=== PATIENT | female | born 1995 | race Caucasian/White ===

== ENCOUNTER 2016-07-14 13:39 | Emergency (ER) | payer OTHER ==
[~2016-07-14 13:39] MED LIST: CEPH-460 PO; PREN1TAB63
[2016-07-14 13:59] VITALS: BP 100/58; PULSE 87
[2016-07-14 14:00] VITALS: RESP 16; TEMP 98.3
[2016-07-14 14:01] VITALS: TEMP 98.3
--- NOTE | 2016-07-14 14:25 | PD ---
HPI Chief Complaint upper abdominal pain Date Seen: Jul 14, 2016 Travel History International Travel<30 Days: No Contact w/Intl Traveler<30Days: No Known Affected Area: No History of Present Illness HPI 21 yo @ 38w0d with MAYDA 07-28-2016. Patient with care at [facility]. Patient reports uncomplicated . She was seen yesterday for a DONALD visit and no complications noted. SVE in clinc 1cm. Last evening she noted some pain across the upper abdomen under her rib cage. The pain "came and went", lasted at the most 5 min. She had some nausea this AM, no vomiting and has a normal appetite. The pain has remained intermittent today. She does not think it is related to her eating. It radiates to her back area. She has had some GERD this . No UC, LOF, VB. +FM. History Past Medical History Medical History: Denies Significant Hx Obstetric History Obstetric History G1 Family History Family History: Negative Social History Alcohol Use: No Tobacco Use: No Substance Abuse: No Allergies-Medications (Allergen,Severity, Reaction): Coded Allergies: No Known Allergies (Unverified , 07/13/16) Home Meds Active Scripts Cephalexin (Keflex)500 Mg [id number] Mg PO Q12H #14 CAP Ref 0 Prov:Rosalie Bran CNM [facility] 07/06/16 Reported Medications Multivit-Min W/Fe-FA ( Vitamins 0.8 mg)1 Tab Tab 03/29/16 Review of Systems General / Constitutional: No: Fever, Chills Eyes: No: Blurred Vision, Visual changes HENT: No: Headaches, Lightheadedness Cardiovascular: No: Irregular Rhythm, Chest Pain or Discomfort, Palpitations Respiratory: No: Cough, Short of Breath Gastrointestinal: Nausea (this am only), Abdominal Pain (per hpi), Constipation , No: Vomiting, Diarrhea, Changes in Bowel Habits, Loss of Appetite Genitourinary: No: Urgency, Frequency, Dysuria, Discharge, Vaginal Bleeding Musculoskeletal: No: Limited ROM, Weakness, Cramping Skin: No Rash, No Itching Neurologic: No: Focal Abnormalities, Coordination Problem Physical Exam Narrative GENERAL: Well-nourished, well-developed patient. SKIN: Warm and dry. HEAD: Normocephalic and atraumatic. EYES: No scleral icterus. No injection or drainage. ENT: No nasal drainage noted. Mucous membranes pink. Airway patent. NECK: trachea midline. No JVD. CARDIOVASCULAR: Regular rate RESPIRATORY: . No accessory muscle use. ABDOMEN/GI: Abdomen soft, non-tender, no rebound, no guarding. Pain is not reproduced on exam. Gravid, NT TOCO: only occasional UC FHT's: Category: I Baseline: 135 Reactive: +accelerations Variability: mod Decels: [-] EXTREMITIES: No cyanosis or edema. BACK: Nontender without obvious deformity. No CVA tenderness. NEUROLOGICAL: Awake and alert. Motor and sensory grossly within normal limits. Normal speech. Data Data Vital Signs Reviewed: Yes Orders Vital Signs (Adult) .ON ADMISSION (07/14/16 13:51) ^ Labor Status (07/14/16 13:51) ^ Non Stress Test (07/14/16 13:51) Urinalysis - C+S If Indicated (07/14/16 14:18) ^ Hydration (07/14/16 14:18) Cbc No Diff, Includes Plts (07/14/16 14:18) Comprehensive Metabolic Panel (07/14/16 14:18) Citric Acid-Sodium Citrate Liq (Bicitra (07/14/16 14:30) Labs Laboratory Tests Test 07/14/16 14:20 White Blood Count 8.2 TH/MM3 (4.0-11.0) Red Blood Count 3.94 MIL/MM3 (4.00-5.30) Hemoglobin 12.1 GM/DL (11.6-15.3) Hematocrit 34.6 % (35.0-46.0) Mean Corpuscular Volume 88.0 FL (80.0-100.0) Mean Corpuscular Hemoglobin 30.7 PG (27.0-34.0) Mean Corpuscular Hemoglobin 34.9 % Concent (32.0-36.0) Red Cell Distribution Width 13.1 % (11.6-17.2) Platelet Count 198 TH/MM3 (150-450) Mean Platelet Volume 8.0 FL (7.0-11.0) Urine Color YELLOW (YELLW/STRAW) Urine Turbidity HAZY (CLEAR) Urine pH 7.0 (5.0-8.5) Urine Specific Glenn 1.023 (1.002-1.035) Urine Protein TRACE mg/dL (NEG-TRACE) Urine Glucose (UA) NEG mg/dL (NEG) Urine Ketones NEG mg/dL (NEG) Urine Occult Blood NEG (NEG) Urine Nitrite NEG (NEG) Urine Bilirubin NEG (NEG) Urine Urobilinogen 2.0 MG/DL (LESS THAN 2.0) Urine Leukocyte Esterase SMALL (NEG) Urine WBC 1 /hpf (0-5) Urine Squamous Epithelial 4 /hpf (0-5) Cells Urine Transitional Epithelial <1 /hpf (NONE) Cells Urine Mucus FEW /lpf (OCC) Microscopic Urinalysis Comment CULT NOT INDICATED Sodium Level 138 MEQ/L (136-145) Potassium Level 3.9 MEQ/L (3.5-5.1) Chloride Level 106 MEQ/L (98-107) Carbon Dioxide Level 22.5 MEQ/L (21.0-32.0) Anion Gap 10 MEQ/L (5-15) Blood Urea Nitrogen 7 MG/DL (7-18) Creatinine 0.41 MG/DL (0.50-1.00) Estimat Glomerular Filtration 198 ML/MIN Rate (>89) Random Glucose 69 MG/DL (74-106) Calcium Level 8.6 MG/DL (8.5-10.1) Total Bilirubin 0.3 MG/DL (0.2-1.0) Aspartate Amino Transf 20 U/L (16-38) (AST/SGOT) Alanine Aminotransferase 27 U/L (9-42) (ALT/SGPT) Alkaline Phosphatase 142 U/L (45-117) Total Protein 6.6 GM/DL (6.4-8.2) Albumin 2.8 GM/DL (3.4-5.0) Vital Signs Date Time Temp Pulse Resp B/P Pulse Ox O2 Delivery O2 Flow Rate FiO2 07/14/16 14:01 98.3 07/14/16 14:00 16 07/14/16 13:59 87 100/58 MDM Narrative Course / MDM 38 weeks Abdominal pain. Occasional contraction noted when patient states she has "pain" Bicitra given for hx of GERD CAT I FHT CBC wnl CMP wnl UA negative Plan No labor at this time. Labor precautions reviewed Has f/u DONALD at [facility] Diagnosis Diagnosis: Primary Impression: Abdominal pain during in third trimester Additional Impression: 38 weeks gestation of Disposition: DISCHARGE HOME Condition: Good Wiedel,Karla MD Jul 14, 2016 14:25
[2016-07-14] MEDS ORDERED: CITRIC ACID-SODIUM CITRATE LIQ 30 ML UDC PO ONE (14:30)
[2016-07-14 14:50] LABS: HEMATOCRIT 34.6 % (35.0-46.0); MEAN CORPUSCULAR HEMOGLOBIN 30.7 PG (27.0-34.0); MEAN CORPUSCULAR HGB CONC 34.9 % (32.0-36.0); PLATELET COUNT 198 TH/MM3 (150-450); RED BLOOD COUNT 3.94 MIL/MM3 (4.00-5.30); RED CELL DISTRIBUTION WIDTH 13.1 % (11.6-17.2); REVIEW FLAG FINAL; WHITE BLOOD COUNT 8.2 TH/MM3 (4.0-11.0)
[2016-07-14 14:51] LABS: BLOOD, URINE NEG (NEG); COMMENT (UR) CULT NOT INDICATED; CULTURE IF INDICATED CULT NOT INDICATED; GLUCOSE,URINE NEG (NEG); KETONE, URINE NEG (NEG); MUCUS URINE FEW /lpf (OCC); NITRITE,URINE NEG (NEG); SQUAMOUS EPITHELIAL CELL URINE 4 /hpf (0-5); TRANSITIONAL EPI CELLS, URINE <1 /hpf; URINE COLOR YELLOW (YELLW/STRAW)
[2016-07-14 15:25] LABS: ALT (GPT) 27 U/L (9-42); ANION GAP 10 MEQ/L (5-15); AST (GOT) 20 U/L (16-38); BICARBONATE 22.5 MEQ/L (21.0-32.0); BLOOD UREA NITROGEN 7 MG/DL (7-18); CHLORIDE 106 MEQ/L (98-107); GLOMERULAR FILTRATION RATE 198 ML/MIN (>89); POTASSIUM 3.9 MEQ/L (3.5-5.1); SODIUM (NA) 138 MEQ/L (136-145)
[2016-07-14 15:28] LABS: ALKALINE PHOSPHATASE 142 U/L (45-117); TOTAL BILIRUBIN ADULT 0.3 MG/DL (0.2-1.0)
[2016-09-28] MEDS ORDERED: PARAIUD (16:18)
== END 2016-07-14 15:46 | disposition home or self-care (01) ==
LOC: HOBED 13:39
DX: R10.10 Upper abdominal pain, unspecified (principal); O26.93 Pregnancy related conditions, unspecified, third trimester; K21.9 Gastro-esophageal reflux disease without esophagitis; Z3A.38 38 weeks gestation of pregnancy
CPT/HCPCS: 36415; 59025; 80053; 81001; 85027

== ENCOUNTER 2016-07-24 00:06 | Emergency (ER) | payer OTHER ==
[~2016-07-24 00:06] MED LIST changes: -CEPH-460 PO
--- NOTE | 2016-07-24 01:10 | PD ---
HPI Chief Complaint Abdominal pain and back pain for the past 5 hours Date Seen: Jul 24, 2016 Time Seen: 01:04 Travel History International Travel<30 Days: No Contact w/Intl Traveler<30Days: No Known Affected Area: No History of Present Illness HPI Patient is a 21-year-old white female who is at 39 weeks and 3 days comes in tonight for abdominal and back pain for the past several hours. In taking care of by care for [facility] for women without any complications. She has good movement and denies vaginal bleeding or discharge. Cervix was 1 cm 1 week ago. Para: 0 : 1 Last Menstrual Period: Jul 24, 2016 (MAYDA July 28, 2016) History Past Medical History Medical History: Denies Significant Hx Past Surgical History Surgical History: No Previous Surgery Family History Family History: Negative Social History Alcohol Use: No Tobacco Use: No Substance Abuse: No Allergies-Medications (Allergen,Severity, Reaction): Coded Allergies: No Known Allergies (Unverified , 07/20/16) Home Meds Reported Medications Multivit-Min W/Fe-FA ( Vitamins 0.8 mg)1 Tab Tab 03/29/16 Discontinued Scripts Cephalexin (Keflex)500 Mg [id number] Mg PO Q12H #14 CAP Ref 0 Prov:Rosalie Bran CNM [employer] 07/06/16 Review of Systems Except as stated in HPI: all other systems reviewed are Neg Physical Exam Narrative GENERAL: Well-nourished, well-developed patient. SKIN: Warm and dry. HEAD: Normocephalic and atraumatic. EYES: No scleral icterus. No injection or drainage. ENT: No nasal drainage noted. Mucous membranes pink. Airway patent. NECK: Supple, trachea midline. No JVD. CARDIOVASCULAR: Regular rate and rhythm without murmurs, gallops, or rubs. RESPIRATORY: Breath sounds equal bilaterally. No accessory muscle use. BREASTS: Bilateral exam showed no masses , no retractions, no nipple discharge. ABDOMEN/GI: Abdomen soft, non-tender, bowel sounds present, no rebound, no guarding Gravid to [38-] weeks size Fundal Height: [-] GENITOURINARY: External Genitalia: intact and normal in appearance BUS glands: [Normal-] Cervix: Very posterior Dilatation: 1 Effacement: 50 Station: -3 Presentation: Vertex Membranes: Intact Uterine Contractions: Irregular every 5-15 minutes FHT's: Category: [1-] Baseline: 140 Reactive: Reactive with accelerations Variability: Moderate Decels: Absent EXTREMITIES: No cyanosis or edema. BACK: Nontender without obvious deformity. No CVA tenderness. NEUROLOGICAL: Awake and alert. Motor and sensory grossly within normal limits. Five out of 5 muscle strength in all muscle groups. Normal speech. Data Data Vital Signs Reviewed: Yes MDM Plan Patient is a 21-year-old who was at 39 weeks and 3 days here with false labor Cervix is unchanged from her exam 1 week ago Labor precautions were given she will be discharged with follow-up to her OB provider. Return back to labor and delivery for worsening pain vaginal bleeding and vaginal discharge or rupture of membranes Diagnosis Diagnosis: Primary Impression: 39 weeks gestation of Additional Impression: False labor after 37 weeks of gestation without delivery Disposition: 01 DISCHARGE HOME Lynda Li MD Jul 24, 2016 01:09
[2016-09-28] MEDS ORDERED: PARAIUD (16:18)
== END 2016-07-24 01:33 | disposition home or self-care (01) ==
LOC: HOBED 00:06
DX: O47.1 False labor at or after 37 completed weeks of gestation (principal); Z3A.39 39 weeks gestation of pregnancy
CPT/HCPCS: 99283

== ENCOUNTER 2016-07-26 18:20 | Emergency (ER) | payer OTHER ==
--- NOTE | 2016-07-26 18:53 | PD ---
HPI Chief Complaint Lower abdominal pain Travel History International Travel<30 Days: No Contact w/Intl Traveler<30Days: No Known Affected Area: No History of Present Illness HPI G1 at 39w 5d presenting with c/o lower abdominal pain. Patient seen here 2 days ago with similar complaints. Cervical exam 1cm then. Patient also reports being evaluated at another facility today, discharged, but wanting to be examined again. Reporting occasional feeling of heart racing. Denies SOB. Para: 0 : 1 History Past Medical History Medical History: Denies Significant Hx Past Surgical History Surgical History: No Previous Surgery Family History Family History: Negative Social History Alcohol Use: No Tobacco Use: No Substance Abuse: No Allergies-Medications (Allergen,Severity, Reaction): Coded Allergies: No Known Allergies (Unverified , 07/20/16) Home Meds Reported Medications Multivit-Min W/Fe-FA ( Vitamins 0.8 mg)1 Tab Tab 03/29/16 Discontinued Scripts Cephalexin (Keflex)500 Mg [id number] Mg PO Q12H #14 CAP Ref 0 Prov:Rosalie Bran CNM [employer] 07/06/16 Physical Exam AFVSS BP 115/64 Pulse ox 99% on room air Narrative GENERAL: Well-nourished, well-developed patient. SKIN: Warm and dry. HEAD: Normocephalic and atraumatic. EYES: No scleral icterus. No injection or drainage. ENT: No nasal drainage noted. Mucous membranes pink. Airway patent. NECK: Supple, trachea midline. No JVD. CARDIOVASCULAR: Regular rate and rhythm without murmurs, gallops, or rubs. RESPIRATORY: Breath sounds equal bilaterally. No accessory muscle use. BREASTS: Bilateral exam showed no masses , no retractions, no nipple discharge. ABDOMEN/GI: Abdomen soft, non-tender, bowel sounds present, no rebound, no guarding Gravid to [-] weeks size Fundal Height: [-] GENITOURINARY: External Genitalia: intact and normal in appearance BUS glands: [-] Cervix: [-] Dilatation: [1] Effacement: [50] Station: [3] Presentation: [-] Membranes: [intact or ruptured] Uterine Contractions: [irregular] FHT's: Category: [1] Baseline: [130s] Reactive: [reactive] Variability: [moderate] Decels: [none] EXTREMITIES: No cyanosis or edema. BACK: Nontender without obvious deformity. No CVA tenderness. NEUROLOGICAL: Awake and alert. Motor and sensory grossly within normal limits. Five out of 5 muscle strength in all muscle groups. Normal speech. Data Data Vital Signs Reviewed: Yes Labs UA- negative with small LE MDM Interpretation(s) IUP at 39w 5d Plan Will monitor. Will recheck cervix and d/c home if no cervical change. Patient to keep appt scheduled for tomorrow. Diagnosis Diagnosis: Primary Impression: 39 weeks gestation of Additional Impressions: False labor after 37 weeks of gestation without delivery Abdominal pain during in third trimester Disposition: DISCHARGE HOME Condition: Good Eunice Noonan MD Jul 26, 2016 18:53
[2016-07-26 20:07] LABS: BACTERIA, URINE OCC /hpf; BLOOD, URINE NEG (NEG); COMMENT (UR) CULT NOT INDICATED; CULTURE IF INDICATED CULT NOT INDICATED; GLUCOSE,URINE NEG (NEG); KETONE, URINE NEG (NEG); MUCUS URINE FEW /lpf (OCC); NITRITE,URINE NEG (NEG); PH, URINE 6.5 (5.0-8.5); SQUAMOUS EPITHELIAL CELL URINE 3 /hpf (0-5); URINE COLOR YELLOW (YELLW/STRAW)
[2016-09-28] MEDS ORDERED: PARAIUD (16:18)
== END 2016-07-26 21:57 | disposition home or self-care (01) ==
LOC: HOBED 18:20
DX: O47.1 False labor at or after 37 completed weeks of gestation (principal); R10.9 Unspecified abdominal pain; Z3A.39 39 weeks gestation of pregnancy
CPT/HCPCS: 59025; 81001

== ENCOUNTER 2016-08-02 15:39 | Inpatient (IN) | payer OTHER ==
[~2016-08-02] VITALS: Ht 170.2 cm; Wt 95.3 kg
--- NOTE | 2016-08-02 16:05 | PD ---
HPI Chief Complaint Induction of labor Date Seen: Aug 02, 2016 Time Seen: 16:10 Travel History International Travel<30 Days: No Contact w/Intl Traveler<30Days: No History of Present Illness HPI 21 year old at 40/5 weeks gestation presents for scheduled induction of labor. She has no leakage of fluid or contractions. Has good movement. No headache, blurry vision, abdominal pain, chest pain, shortness of breath, or calf tenderness. Reports no complications during this . Review of records shows rubella non-immune status, GBS negative but done over 5 weeks ago , and late care, otherwise labs normal and no other complications. History Past Medical History Narrative Medical None Obstetric History Obstetric History MAYDA 07/28/16 - by Approximate LMP of 10/22/15 Confirmed by Ultrasound 03/18/16 Problems/Plan RUBELLA NON IMMUNE Late intake -GBS Expected Delivery Route/Plan vaginal Visit Flowsheet Prepregnancy Weight: 175 #: 3 Date EGA BP Wt Alb Glu FuHt Pres FHR F/m CTX Edema Dil Eff Sta Prov 03/10/16 20w0d 109/66 185 n n 03/29/16 22w5d 106/78 188 n n 23 Unstable 143 Active Absent Absent lb 04/28/16 27w0d 122/71 193 n n 27 Unstable 144 Active Absent Absent lb 05/14/16 29w2d 116/82 197 n n 29 135 Decr Absent Absent sc 05/28/16 31w2d 100/61 199 N N 31 144 Active Absent Absent sc 06/10/16 33w1d 118/70 202 n n 33 138 Active Absent Absent sc 06/24/16 35w1d 106/74 204 n n 35 Ceph 150 Active BH Absent sc Cumulative Gain: 29 2 Date EGA Comment 06/24/16 35w1d baby active, reports occ cramping. GBS and cx obtained, labor discussed 06/24/16 35w1d SONO. Good growth, EFW 6 lb 6 oz, 80 %tile, SIGRID wnl. 13.8 cm. Incidental BPP /8, Anatomy appears wnl although limiting by late GA and lie. 06/10/16 33w1d baby active, no c/o. labor discussed 05/28/16 31w2d baby active, labor discussed as well as hospital choice. 05/14/16 29w2d Pt reports decreased movement. Sts she has not felt much movement in 1-2 days. EFM applied for NST. Audible and palpable movement although NST is flat w/o accels. Discussed findings w pt and sent to L &D for extended NST. 04/28/16 27w0d SONO. Good growth, EFW 2 lb 2 oz, EFW 46.9 %tile, anatomy appears wnl, heart and face visualized today and also appears wnl. 04/28/16 27w0d states heartburm better now on meds but still gets. Has sono to follow to get additional views of heart/face. Given 28 week labslip 03/29/16 22w5d C/o RUQ pain -- pt thought it was gas-- describes as sharp radiating to her back, worse upon inhalation, feels like burping would make it better. Happens only at night when lying down. 03/18/16 21w1d SONO. Biometries consistent with LMP, EFW 14 oz, 45%tile. Anatomy appears wnl although some views limited due to lie (heart and face ). FU 4-6 wk for repeat anatomy. Standard Items 3 Result Result Date Next Due Freq/Seq Obstetric Labs 32-36 WKS Group B Streptococcus Screen Manual Instance 06/26/16 (35w3d) Complete 35w0d History 2 : 1 AB Spontaneous: 0 Term: 0 Mult Births: 0 : 0 Ectopic: 0 AB Induced: 0 Living Children: 0 OTHER- Care-Labs/US Initial lab date: Mar 10, 2016 Blood type: O D (Rh) Type: Positive Antibody screen: negative Hematocrit (%): 35.3 Hemoglobin (dL): 12.5 Rubella: Not immune VDRL: negative Urine screen: Normal HBsAg: negative HIV: negative TSH: 2.50 Varicella: Positive MSAFP/multiple markers: negative (HARMONY NEG, HAVING A GIRL) Visit date: May 06, 2016 Hematocrit (%): 36.6 Hemoglobin (dL): 12.1 Diabetes screen - 1-hr GGT: 113 HIV: Negative Hepatitis B: Negative VDRL: negative Chlamydia (32 - 36 week labs): negative Gonorrhea (32 - 36 week labs): negative GBS: negative on June 24, needs repeat Past Surgical History Narrative Surgical None Family History Narrative Family History None significant Social History Alcohol Use: No Tobacco Use: No Substance Abuse: No Allergies-Medications (Allergen,Severity, Reaction): Coded Allergies: No Known Allergies (Unverified , 08/02/16) Home Meds Reported Medications Multivit-Min W/Fe-FA ( Vitamins 0.8 mg)1 Tab Tab 03/29/16 Review of Systems Except as stated in HPI: all other systems reviewed are Neg Physical Exam Narrative GENERAL: Resting SKIN: Warm and dry. HEAD: Normocephalic and atraumatic. EYES: No scleral icterus. No injection or drainage. ENT: No nasal drainage noted. Mucous membranes pink. Airway patent. NECK: Supple, trachea midline. No JVD. CARDIOVASCULAR: Regular rate and rhythm without murmurs, gallops, or rubs. RESPIRATORY: Breath sounds equal bilaterally. No accessory muscle use. ABDOMEN/GI: Abdomen soft, non-tender, bowel sounds present, no rebound, no guarding Gravid to 41 weeks size GENITOURINARY: External Genitalia: intact and normal in appearance Dilatation: 1-2 Effacement: 50 Station: -3 Presentation: vertex Membranes: intact Uterine Contractions: none FHT's: Category: 1 Baseline: 130's Reactive: yes Variability: moderate Decels: none EXTREMITIES: No cyanosis or edema. BACK: Nontender without obvious deformity. No CVA tenderness. NEUROLOGICAL: Awake and alert. Data Data Vital Signs Reviewed: Yes [facility] Medical Record Reviewed: Yes Interpretation(s) 21 year old at 40/5 weeks gestation her for scheduled induction of labor. - Admit to labor and delivery. - heart rate monitoring. - Cervidil for cervical ripening. - Expectant management. - Plan for vaginal delivery. Discussed with Dr. Dank Linda,Mahesh Steiner MD R2 Aug 02, 2016 16:05
[2016-08-02] MEDS ORDERED: LACTATED RINGER'S 1000 ML INJ 1,000 ML IV PRN (16:08)
[2016-08-02] MEDS ORDERED: LIDOCAINE HCL 1% 50 ML VIAL I-DERMAL PRN (16:15)
[2016-08-02] MEDS ORDERED: MINERAL OIL 10 ML VIAL TOPICAL PRN (16:15)
[2016-08-02] MEDS ORDERED: OXYTOCIN 30 UNITS-500ML PREMIX 500 ML IV ONE (16:15)
[2016-08-02] MEDS ORDERED: ONDANSETRON HCL 4 MG/2 ML VIAL IV PRN (16:15)
[2016-08-02] MEDS ORDERED: LIDOCAINE HCL 1% 50 ML VIAL INFIL PRN (16:15)
[2016-08-02] MEDS ORDERED: CITRIC ACID-SODIUM CITRATE LIQ 30 ML UDC PO SCH (16:15)
[2016-08-02] MEDS ORDERED: SODIUM CHLORID 0.9% 500 ML INJ 500 ML IV PRN (16:15)
[2016-08-02] MEDS ORDERED: SODIUM CHLOR 0.9% 1000 ML INJ 1,000 ML IV PRN (16:28)
--- NOTE | 2016-08-02 16:30 | HHI.HP ---
History & Physical H&P HPI Chief Complaint Induction of labor Date Seen: Aug 02, 2016 Time Seen: 16:10 Travel History International Travel<30 Days: No Contact w/Intl Traveler<30Days: No History of Present Illness HPI 21 year old at 40/5 weeks gestation presents for scheduled induction of labor. She has no leakage of fluid or contractions. Has good movement. No headache, blurry vision, abdominal pain, chest pain, shortness of breath, or calf tenderness. Reports no complications during this . Review of records shows rubella non-immune status, GBS negative but done over 5 weeks ago , and late care, otherwise labs normal and no other complications. History (Limited) History Past Medical History Narrative Medical None Obstetric History Obstetric History MAYDA 07/28/16 - by Approximate LMP of 10/22/15 Confirmed by Ultrasound 03/18/16 Problems/Plan RUBELLA NON IMMUNE Late intake -GBS Expected Delivery Route/Plan vaginal Visit Flowsheet Prepregnancy Weight: 175 #: 3 Date EGA BP Wt Alb Glu FuHt Pres FHR F/m CTX Edema Dil Eff Sta Prov 03/10/16 20w0d 109/66 185 n n 03/29/16 22w5d 106/78 188 n n 23 Unstable 143 Active Absent Absent lb 04/28/16 27w0d 122/71 193 n n 27 Unstable 144 Active Absent Absent lb 05/14/16 29w2d 116/82 197 n n 29 135 Decr Absent Absent sc 05/28/16 31w2d 100/61 199 N N 31 144 Active Absent Absent sc 06/10/16 33w1d 118/70 202 n n 33 138 Active Absent Absent sc 06/24/16 35w1d 106/74 204 n n 35 Ceph 150 Active BH Absent sc Cumulative Gain: 29 2 Date EGA Comment 06/24/16 35w1d baby active, reports occ cramping. GBS and cx obtained, labor discussed 06/24/16 35w1d SONO. Good growth, EFW 6 lb 6 oz, 80 %tile, SIGRID wnl. 13.8 cm. Incidental BPP 8/8, Anatomy appears wnl although limiting by late GA and lie. 06/10/16 33w1d baby active, no c/o. labor discussed 05/28/16 31w2d baby active, labor discussed as well as hospital choice. 05/14/16 29w2d Pt reports decreased movement. Sts she has not felt much movement in 1-2 days. EFM applied for NST. Audible and palpable movement although NST is flat w/o accels. Discussed findings w pt and sent to L &D for extended NST. 04/28/16 27w0d SONO. Good growth, EFW 2 lb 2 oz, EFW 46.9 %tile, anatomy appears wnl, heart and face visualized today and also appears wnl. 04/28/16 27w0d states heartburm better now on meds but still gets. Has sono to follow to get additional views of heart/face. Given 28 week labslip 03/29/16 22w5d C/o RUQ pain -- pt thought it was gas-- describes as sharp radiating to her back, worse upon inhalation, feels like burping would make it better. Happens only at night when lying down. 03/18/16 21w1d SONO. Biometries consistent with LMP, EFW 14 oz, 45%tile. Anatomy appears wnl although some views limited due to lie (heart and face ). FU 4-6 wk for repeat anatomy. Standard Items 3 Result Result Date Next Due Freq/Seq Obstetric Labs 32-36 WKS Group B Streptococcus Screen Manual Instance 06/26/16 (35w3d) Complete 35w0d History 2 : 1 AB Spontaneous: 0 Term: 0 Mult Births: 0 : 0 Ectopic: 0 AB Induced: 0 Living Children: 0 OTHER- Care-Labs/US Initial lab date: Mar 10, 2016 Blood type: O D (Rh) Type: Positive Antibody screen: negative Hematocrit (%): 35.3 Hemoglobin (dL): 12.5 Rubella: Not immune VDRL: negative Urine screen: Normal HBsAg: negative HIV: negative TSH: 2.50 Varicella: Positive MSAFP/multiple markers: negative (HARMONY NEG, HAVING A GIRL) Visit date: May 06, 2016 Hematocrit (%): 36.6 Hemoglobin (dL): 12.1 Diabetes screen - 1-hr GGT: 113 HIV: Negative Hepatitis B: Negative VDRL: negative Chlamydia (32 - 36 week labs): negative Gonorrhea (32 - 36 week labs): negative GBS: negative on June 24, needs repeat Past Surgical History Narrative Surgical None Family History Narrative Family History None significant Social History Alcohol Use: No Tobacco Use: No Substance Abuse: No Allergies-Medications Allergies-Medications (Allergen,Severity, Reaction): Coded Allergies: No Known Allergies (Unverified , 08/02/16) Home Meds Reported Medications Multivit-Min W/Fe-FA ( Vitamins 0.8 mg)1 Tab Tab 03/29/16 ROS Review of Systems Except as stated in HPI: all other systems reviewed are Neg Physical Exam Physical Exam Narrative GENERAL: Resting SKIN: Warm and dry. HEAD: Normocephalic and atraumatic. EYES: No scleral icterus. No injection or drainage. ENT: No nasal drainage noted. Mucous membranes pink. Airway patent. NECK: Supple, trachea midline. No JVD. CARDIOVASCULAR: Regular rate and rhythm without murmurs, gallops, or rubs. RESPIRATORY: Breath sounds equal bilaterally. No accessory muscle use. ABDOMEN/GI: Abdomen soft, non-tender, bowel sounds present, no rebound, no guarding Gravid to 41 weeks size GENITOURINARY: External Genitalia: intact and normal in appearance Dilatation: 1-2 Effacement: 50 Station: -3 Presentation: vertex Membranes: intact Uterine Contractions: none FHT's: Category: 1 Baseline: 130's Reactive: yes Variability: moderate Decels: none EXTREMITIES: No cyanosis or edema. BACK: Nontender without obvious deformity. No CVA tenderness. NEUROLOGICAL: Awake and alert. Data Data Data Vital Signs Reviewed: Yes MDM MDM Medical Record Reviewed: Yes Interpretation(s) 21 year old at 40/5 weeks gestation her for scheduled induction of labor. - Admit to labor and delivery. - heart rate monitoring. - Cervidil for cervical ripening. - Expectant management. - Plan for vaginal delivery. Discussed with Dr. Weems (Mahesh Linda MD R2) H&P The exam, history, and the medical decision-making described in the above note were completed with the assistance of the resident provider. I reviewed and agree with the findings presented. I attest that I had a [id number] encounter with the patient on the same day, and personally performed and documented my assessment and findings in the medical record. (Jonathan Weems MD) Mahesh Linda MD R2 Aug 02, 2016 16:30 Jonathan Weems MD Aug 02, 2016 17:16
[2016-08-02 16:58] LABS: BACTERIA, URINE RARE /hpf; BLOOD, URINE SMALL (NEG); COMMENT (UR) CULT NOT INDICATED; CULTURE IF INDICATED CULT NOT INDICATED; GLUCOSE,URINE NEG (NEG); KETONE, URINE NEG (NEG); NITRITE,URINE NEG (NEG); SQUAMOUS EPITHELIAL CELL URINE 6 /hpf (0-5); URINE COLOR YELLOW (YELLW/STRAW)
[2016-08-02] MEDS ORDERED: DINOPROSTONE 10 MG VAG INSERT VAGINAL ONE (17:00)
[2016-08-02] MEDS: LACTATED RINGER'S 1000 ML INJ 1,000 ML IV SCH (17:13)
[2016-08-02 17:30] LABS: AUTOMATED NEUTROPHIL # 5.7 TH/MM3 (1.8-7.7); BASOPHIL % 0.5 % (0.0-2.0); EOSINOPHIL % 0.5 % (0.0-4.0); HEMO FLAGS DIFF FINAL; LYMPH % 29.5 % (9.0-44.0); LYMPHOCYTE # 2.6 TH/MM3 (1.0-4.8); MEAN CORPUSCULAR HEMOGLOBIN 31.1 PG (27.0-34.0); MEAN CORPUSCULAR HGB CONC 35.3 % (32.0-36.0); MONO % 4.5 % (0.0-8.0); PLATELET COUNT 224 TH/MM3 (150-450); RED BLOOD COUNT 4.09 MIL/MM3 (4.00-5.30); RED CELL DISTRIBUTION WIDTH 13.2 % (11.6-17.2); WHITE BLOOD COUNT 8.8 TH/MM3 (4.0-11.0)
[2016-08-03] VITALS (18 sets, daily range): BP systolic 95–131; BP diastolic 51–91; PULSE 82–107; RESP 18–20; TEMP 98.4–100; O2SAT 100
[2016-08-03] MEDS: LACTATED RINGER'S 1000 ML INJ 1,000 ML IV SCH (00:06)
[2016-08-03] MEDS ORDERED: fentaNYL 2MCG-BUPIV 0.125% INJ 100 ML ONE (01:09)
[2016-08-03] MEDS ORDERED: NO SYSTEM NARCOTICS XX PRN (01:30)
[2016-08-03] MEDS ORDERED: DO NOT ADMINISTER ANTICOAGULANTS XX PRN (01:30)
[2016-08-03] MEDS ORDERED: fentaNYL 2MCG-BUPIV 0.125% 100 ML EPIDURAL SCH (01:30)
[2016-08-03] MEDS ORDERED: ePHEDrine/NS 25 MG/5 ML SYR IV PRN (02:15)
--- NOTE | 2016-08-03 03:00 | PD.LABORPN ---
Subjective Subjective Patient is resting comfortably with epidural in place. Objective Objective Pelvic Exam: Cervix: posterior Dilatation: 3 Effacement: 80 Station: - 3 Presentation: vertex Membranes: intact Uterine Contractions: q1-4min FHT's: Category: I Baseline: 120 Reactive: + Variability: moderate Decels: none Assessment/Plan Assessment and Plan 21 year old at 40-6/7 weeks gestation. 1. IUP- Category I tracing, continue routine obstetric care. 2. IOL- s/p Cervidil and cervical change to 3cm. Adequate contraction pattern at this time. Will augment with Pitocin if needed. 3. GBS negative 4. Anticipate vaginal delivery sdw Dr. Sanz R1 dw Pau Weinstein MD R2 Aug 03, 2016 03:00
[2016-08-03] MEDS ORDERED: OXYTOCIN 30 UNITS-500ML PREMIX 500 ML IV SCH (07:00)
[2016-08-03] MEDS ORDERED: ACETAMINOPHEN 325 MG TAB PO PRN ×2 (08:15→15:15)
--- NOTE | 2016-08-03 08:23 | PD.LABORPN ---
Subjective Subjective Patient with no complaints, epidural placed approximately 2am. Cervidil removed approx 5am with cervical change at that time. She is approx 8cm/90%/-2 with bulging membranes. Amniotomy was attempted and unsuccessful due to thick amniotic sac. FHT notable for tachycardia to 170, + accels, no decels, cat 2. to Maternal axillary temp is 98.1F, patient denies any symptoms. Patient was repositioned to L lateral position with new baseline HR 160. CTX are irregular. Plan: start Pitocin at 07/01/29 at this time, monitor FHT and contractions. Tylenol as needed; no fever now but will consider maternal infx if fever arises or she has symptom Routine intrapartum care GBS negative Objective Vital Signs Maternal temp 98.1F R16 P92, 112/81 Objective as above Assessment/Plan Assessment and Plan 21 year old at 40-6/7 weeks gestation. 1. IUP- Category II tracing due to tachycardia, now 160 (Cat 1), will monitor. 2. Continue routine obstetric care. 3. IOL- s/p Cervidil and cervical change now to 8cm/90%/-2. Irregular contraction pattern at this time. Start Pitocin 2/2/3-, monitor for tachysystole , intolerance, 3. GBS negative 4. Anticipate vaginal delivery Abbi Schumacher MD R1 Aug 03, 2016 08:23
--- NOTE | 2016-08-03 12:08 | PD.LABORPN ---
Subjective Subjective no c/o. comfortable with epidural Objective Vital Signs Vital Signs Date Time Temp Pulse Resp B/P Pulse Ox O2 Delivery O2 Flow Rate FiO2 08/03/16 11:45 20 08/03/16 11:30 87 111/51 08/03/16 11:00 82 124/76 08/03/16 10:30 83 128/84 08/03/16 10:00 89 125/83 Objective Pelvic Exam: Cervix: 6/80/-1, bloody show present, AROM (clear?), IUPC placed Uterine Contractions: q2 FHT's: Category: [1] Baseline: 140 Reactive: yes Variability: mod Decels: early decels noted after IUPC Placed Assessment/Plan Assessment and Plan IUP at 40w6d continue IOL GBS neg Jonathan Weems MD Aug 03, 2016 12:08
--- NOTE | 2016-08-03 15:04 | PD.LABORPN ---
Subjective Subjective OB attending note This patient is a 41 week delivered vaginally over a first-degree perineal laceration without complication. Suction on the perineum . Delivery was uncomplicated cord blood obtained placenta delivered intact spontaneously baby's weight 4010 g 8 and 9 female, mild periurethral laceration and the small perineal laceration repaired in interrupted sutures, blood loss 100 cc her no complications delivery on the family medicine residents and once again there was no problem Objective Vital Signs Vital Signs Date Time Temp Pulse Resp B/P Pulse Ox O2 Delivery O2 Flow Rate FiO2 08/03/16 14:30 99 126/70 08/03/16 14:00 107 105/70 08/03/16 13:37 99.3 18 08/03/16 13:31 84 95/52 08/03/16 13:00 93 113/67 08/03/16 12:59 20 08/03/16 12:30 88 123/77 08/03/16 12:00 85 131/91 08/03/16 11:45 20 08/03/16 11:30 87 111/51 08/03/16 11:00 82 124/76 08/03/16 10:30 83 128/84 08/03/16 10:00 89 125/83 Objective Ramos Grant II, MD Aug 03, 2016 15:04
--- NOTE | 2016-08-03 15:05 | PD.OB.DELI ---
Delivery Date: Aug 03, 2016 Anesthesia: Epidural Episiotomy: None Vaginal Delivery: Normal Presentation: Occiput anterior Nuchal Cord: None Delayed cord clamping (45 sec): Yes Infant: Female One Minute : 8 Five Minute : 9 Weight: 8 lbs 13 oz Infant Care: Suctioned, Responded to stimulation Placenta: Spontaneous delivery, Intact, 3 vessel cord Laceration: 1 deg Repair: Chromic interrupted Additional Information two 1st degree lacerations, one at 6 o'clock position and the other at 12 o' clock position, repaired with 3-0 chromic with interrupted sutures. Mahesh Linda MD R2 Aug 03, 2016 15:05
[2016-08-03] MEDS ORDERED: ALUMINUM/MAGNESIUM/SIMETH 30 ML CUP PO PRN (15:15)
[2016-08-03] MEDS ORDERED: ONDANSETRON ODT 4 MG TAB PO PRN (15:15)
[2016-08-03] MEDS ORDERED: oxyCODONE/ACETAMINOPHEN 5 MG/325 MG TAB PO PRN (15:15)
[2016-08-03] MEDS ORDERED: SODIUM CHLORIDE 0.9% FLUSH 5 ML FLUSH IV PRN (15:15)
[2016-08-03] MEDS ORDERED: DOCUSATE SODIUM 50 MG/SENNA 8.6 MG TAB PO PRN (15:15)
[2016-08-03] MEDS ORDERED: DIPHTH/TETANUS/ACEL PERTUSSIS (BOOSTER) 0.5 ML VIAL/PFS IM ONE (16:00)
[2016-08-03] MEDS ORDERED: MEASLES, MUMPS, RUBELLA VACCINE 0.5 ML VIAL SQ ONE (16:00)
[2016-08-03] MEDS: WITCH HAZEL 50%/GLYCERIN 12.5% 40 PAD JAR TOPICAL PRN (19:50)
[2016-08-03] MEDS: BENZOCAINE 20% TOPICAL SPRAY 60 ML CAN TOPICAL PRN (19:50)
[2016-08-03] MEDS: IBUPROFEN 600 MG TAB PO PRN (19:50)
[2016-08-03] MEDS ORDERED: SODIUM CHLORIDE 0.9% FLUSH 5 ML FLUSH IV SCH (21:00)
[2016-08-03] MEDS ORDERED: ZOLPIDEM TARTRATE 5 MG TAB PO PRN (21:00)
[2016-08-04] MEDS: IBUPROFEN 600 MG TAB PO PRN ×3 (04:08→19:25)
[2016-08-04 08:00] VITALS: BP 111/67; PULSE 89; RESP 18; TEMP 97.9
--- NOTE | 2016-08-04 08:17 | HHI.OB ---
Subjective Remarks 21 year old PPD 1 after . She is comfortable in bed. Pain is well controlled. She is . She plans to follow with Niya Kinney. She wants an IUD for control. Lochia is minimal. She is ambulating. She is urinating. No bowel movement but is passing flatus. Objective Vitals/I&O Vital Signs Date Time Temp Pulse Resp B/P Pulse Ox O2 Delivery O2 Flow Rate FiO2 08/04/16 08:00 97.9 08/04/16 08:00 89 18 111/67 08/03/16 20:00 106/77 08/03/16 20:00 98.4 96 20 08/03/16 18:10 100.0 102 20 113/82 100 08/03/16 16:00 102 118/76 08/03/16 15:31 94 114/76 08/03/16 15:00 83 128/75 08/03/16 14:30 99 126/70 08/03/16 14:00 107 105/70 08/03/16 13:37 99.3 18 08/03/16 13:31 84 95/52 08/03/16 13:00 93 113/67 08/03/16 12:59 20 08/03/16 12:30 88 123/77 08/03/16 12:00 85 131/91 08/03/16 11:45 20 08/03/16 11:30 87 111/51 08/03/16 11:00 82 124/76 08/03/16 10:30 83 128/84 08/03/16 10:00 89 125/83 Objective Remarks GENERAL: Well-nourished, well-developed patient. CARDIOVASCULAR: Regular rate and rhythm without murmurs, gallops, or rubs. RESPIRATORY: Breath sounds equal bilaterally. No accessory muscle use. ABDOMEN/GI: Abdomen soft, non-tender. Fundus: Firm, non-tender at umbilicus. GENITOURINARY: Light to moderate bleeding. EXTREMITIES: No cyanosis or edema, non-tender, without signs of DVT. Medications and IVs Current Medications Medications (Trade) Dose Ordered Sig/Belinda Route Start Time Stop Time Status Last Admin Sodium Chloride 500 ml @ 1,000 mls/hr ONCE PRN IV 08/02/16 16:15 08/04/16 16:14 (NS 1000 ml Inj) 1,000 ml @ 100 mls/hr Q10H PRN IV 08/02/16 16:28 (Zofran Inj) 4 mg Q6H PRN IV 08/02/16 16:15 (NS Flush) 2 ml BID IV 08/03/16 21:00 (NS Flush) 2 ml UNSCH PRN IV 08/03/16 15:15 (Tylenol) 650 mg Q4H PRN PO 08/03/16 15:15 (Motrin) 600 mg Q6H PRN PO 08/03/16 15:15 08/04/16 04:08 (Percocet 5-325 Mg) 1 tab Q4H PRN PO 08/03/16 15:15 (Percocet 5-325 Mg) 2 tab Q4H PRN PO 08/03/16 15:15 (Americaine 20% Top Spr) 1 spray Q4H PRN TOPICAL 08/03/16 15:15 08/03/16 19:50 (Tucks Pads) 1 applic QID PRN TOPICAL 08/03/16 15:15 08/03/16 19:50 (Laura-Colace) 2 tab Q12H PRN PO 08/03/16 15:15 (Ambien) 5 mg HS PRN PO 08/03/16 21:00 (Mag-Al Plus Susp Liq) 15 ml Q8H PRN PO 08/03/16 15:15 (Zofran Odt) 4 mg Q6H PRN PO 08/03/16 15:15 Assessment/Plan Assessment and Plan 21 year old PPD 1 after - Pain control with Ibuprofen PRN - Encourage exclusive - Advise pelvic rest - IUD for control - Will follow with Niya Kinney - Monitor lochia Discussed with Dr. Rudy Linda,Mahseh Steiner MD R2 Aug 04, 2016 08:17
[2016-08-04] MEDS: oxyCODONE/ACETAMINOPHEN 5 MG/325 MG TAB PO PRN ×2 (14:18→19:24)
[2016-08-05] MEDS: IBUPROFEN 600 MG TAB PO PRN ×3 (01:33→13:33)
[2016-08-05] MEDS: oxyCODONE/ACETAMINOPHEN 5 MG/325 MG TAB PO PRN ×2 (01:33→08:05)
[2016-08-05] MEDS ORDERED: SENN1TAB PO (07:01)
[2016-08-05] MEDS ORDERED: IBUP-232 PO (07:01)
--- NOTE | 2016-08-05 07:02 | HHI.DCPOC ---
Discharge Care Plan Diagnosis: (1) Vaginal delivery Goals to Promote Your Health * To prevent worsening of your condition and complications * To maintain your health at the optimal level Directions to Meet Your Goals Take your medications as prescribed Follow your dietary instruction Follow activity as directed Keep your appointments as scheduled Take your immunizations and boosters as scheduled If your symptoms worsen call your PCP, if no PCP go to Urgent Care Center or Emergency Room Smoking is Dangerous to Your Health. Avoid second hand smoke Call the 24-hour hour crisis hotline for domestic abuse at Mahesh Linda MD R2 Aug 05, 2016 07:02
--- NOTE | 2016-08-05 07:04 | HHI.OB ---
Subjective Remarks 21 year old PPD 2 after . She is comfortable in bed. Pain is well controlled. She is . She plans to follow with Niya Kinney. She wants an IUD for control. Lochia is minimal. She is ambulating. She is urinating. She had bowel movement. (Mahesh Linda MD R2) Objective Vitals/I&O Vital Signs Date Time Temp Pulse Resp B/P Pulse Ox O2 Delivery O2 Flow Rate FiO2 08/04/16 08:00 97.9 08/04/16 08:00 89 18 111/67 Objective Remarks GENERAL: Well-nourished, well-developed patient. CARDIOVASCULAR: Regular rate and rhythm without murmurs, gallops, or rubs. RESPIRATORY: Breath sounds equal bilaterally. No accessory muscle use. ABDOMEN/GI: Abdomen soft, non-tender. Fundus: Firm, non-tender at umbilicus. GENITOURINARY: Light to moderate bleeding. EXTREMITIES: No cyanosis or edema, non-tender, without signs of DVT. Medications and IVs Current Medications Medications (Trade) Dose Ordered Sig/Belinda Route Start Time Stop Time Status Last Admin (NS 1000 ml Inj) 1,000 ml @ 100 mls/hr Q10H PRN IV 08/02/16 16:28 (Zofran Inj) 4 mg Q6H PRN IV 08/02/16 16:15 (NS Flush) 2 ml BID IV 08/03/16 21:00 (NS Flush) 2 ml UNSCH PRN IV 08/03/16 15:15 (Tylenol) 650 mg Q4H PRN PO 08/03/16 15:15 (Motrin) 600 mg Q6H PRN PO 08/03/16 15:15 08/05/16 01:33 (Percocet 5-325 Mg) 1 tab Q4H PRN PO 08/03/16 15:15 08/05/16 01:33 (Percocet 5-325 Mg) 2 tab Q4H PRN PO 08/03/16 15:15 (Americaine 20% Top Spr) 1 spray Q4H PRN TOPICAL 08/03/16 15:15 08/03/16 19:50 (Tucks Pads) 1 applic QID PRN TOPICAL 08/03/16 15:15 08/03/16 19:50 (Laura-Colace) 2 tab Q12H PRN PO 08/03/16 15:15 08/04/16 14:28 (Ambien) 5 mg HS PRN PO 08/03/16 21:00 (Mag-Al Plus Susp Liq) 15 ml Q8H PRN PO 08/03/16 15:15 (Zofran Odt) 4 mg Q6H PRN PO 08/03/16 15:15 (Mahesh Lidna MD R2) Assessment/Plan Assessment and Plan 21 year old PPD 2 after - Pain control with Ibuprofen PRN - Encourage exclusive - Advise pelvic rest - IUD for control - Will follow with Niya Kinney - Monitor lochia Discussed with Dr. Li (Mahesh Linda MD R2) Attestation Agree with above plan (Lynda Li MD) Mahesh Linda MD R2 Aug 05, 2016 07:04 Lynda Li MD Aug 05, 2016 09:31
[2016-08-05] MEDS: WITCH HAZEL 50%/GLYCERIN 12.5% 40 PAD JAR TOPICAL PRN (08:08)
[2016-08-05] MEDS: BENZOCAINE 20% TOPICAL SPRAY 60 ML CAN TOPICAL PRN (08:09)
[2016-09-28] MEDS ORDERED: PARAIUD (16:18)
== END 2016-08-05 15:30 | disposition home or self-care (01) | DRG 775 ==
LOC: H2EB 15:39 → H1EA 08-03 17:42
PROVIDERS: ADMIT Obstetrics & Gynecology; ATTEND Obstetrics & Gynecology
PROC: 10E0XZZ Delivery of Products of Conception, External Approach (ICD-10-PCS; principal; 2016-08-03)
PROC: 0HQ9XZZ Repair Perineum Skin, External Approach (ICD-10-PCS; 2016-08-03)
PROC: 0HQ9XZZ Repair Perineum Skin, External Approach (ICD-10-PCS; 2016-08-03)
PROC: 00HU33Z Insertion of Infusion Device into Spinal Canal, Percutaneous Approach (ICD-10-PCS; 2016-08-03)
PROC: 3E0R3CZ (ICD-10-PCS; 2016-08-03)
PROC: 10907ZC Drainage of Amniotic Fluid, Therapeutic from Products of Conception, Via Natural or Artificial Opening (ICD-10-PCS; 2016-08-03)
DX: O48.0 Post-term pregnancy (principal); O76 Abnormality in fetal heart rate and rhythm complicating labor and delivery; O70.0 First degree perineal laceration during delivery; Z37.0 Single live birth; Z3A.40 40 weeks gestation of pregnancy
CPT/HCPCS: 59025; 81001; 85025; 86900; 86901; 87081; 87150; 90715; J2590; J3010; J7120

== ENCOUNTER 2016-10-04 06:13 | Emergency (ER) | payer OTHER ==
[~2016-10-04 06:13] MED LIST changes: +PARAIUD; -PREN1TAB63
[2016-10-04 06:14] VITALS: BP 117/70; PULSE 74; RESP 16; TEMP 98.6; O2SAT 99
[2016-10-04] MEDS ORDERED: SODIUM CHLOR 0.9% 1000 ML INJ 1,000 ML IV ONE (06:45)
[2016-10-04] MEDS ORDERED: ONDANSETRON HCL 4 MG/2 ML VIAL IV ONE (06:45)
[2016-10-04] MEDS ORDERED: PANTOPRAZOLE SODIUM 40 MG VIAL IV PUSH ONE (06:45)
--- NOTE | 2016-10-04 06:53 | PD ---
HPI Chief Complaint: Abdominal Pain Time Seen by Provider: 06:44 Travel History International Travel<30 days: No Contact w/Intl Traveler<30days: No History of Present Illness HPI The patient is a 21 year old female who presents to the [facility] emergency department with a history of midepigastric to left upper quadrant abdominal pain that she reports that present since she delivered her child at the beginning of July 2016. This was a term vaginal delivery without complications. She reports that 2 weeks after delivery she went to the [facility] for evaluation of the pain. An ultrasound was done to evaluate for possible gallstones which was reportedly negative. She continues to have the discomfort. She denies having a primary care physician. She reports that the pain is intermittently sharp in character. She reports that it occurs 1-3 times per day. She reports that it is worsening in severity with time. She reports having associated nausea but no vomiting. She denies having any diarrhea. She reports that she is moving her bowels regularly. She last moved her bowels yesterday. Her last mental cycle was September 23. She denies breast- feeding currently. She denies having any fevers or chills. She reports that eating at times makes the pain better and at times makes the pain worse. She reports that she had acid reflux during her , however this resolved. She reports that she tried taking Zantac, however this did not improve her symptoms. She denies any heartburn or acid reflux symptoms currently. She denies having any dysuria, hematuria, urinary urgency, or frequency. She denies having any vaginal discharge. The patient denies any recent fevers, cough , congestion, neck pain, chest pain, shortness of breath, or neurologic symptoms. The patient has an IUD in place for prevention of . [facility] Past Medical History Narrative Medical The patient's past medical history is significant for none. ?: Not LMP: September 23, 2016 Past Surgical History Narrative Surgical The patient's past surgical history is reportedly none. Social History Alcohol Use: No Tobacco Use: No Substance Use: No Allergies-Medications (Allergen,Severity, Reaction): Coded Allergies: No Known Allergies (Unverified , 10/04/16) Reported Meds & Prescriptions Reported Meds & Active Scripts Active Reported Paragard Intrauterine [employer]ager (Copper (Iud)) 1 Iud Iud Review of Systems Except as stated in HPI: all other systems reviewed are Neg General / Constitutional: No: Fever Eyes: No: Visual changes HENT: No: Headaches Cardiovascular: No: Chest Pain or Discomfort Respiratory: No: Shortness of Breath Gastrointestinal: Positive: Nausea, Abdominal Pain, Indigestion, Loss of Appetite, No: Vomiting, Diarrhea, Hematemesis, Hematochezia, Constipation, Changes in Bowel Habits Genitourinary: No: Dysuria Musculoskeletal: No: Pain Skin: No Rash Neurologic: No: Weakness Psychiatric: No: Depression Endocrine: No: Polydipsia Hematologic/Lymphatic: No: Easy Bruising Physical Exam Narrative General: The patient is a well-developed well-nourished female in no acute distress. Head and Neck exam: Head is normocephalic atraumatic. Eyes: EOMI, pupils are equal round and reactive to light. Nose: Midline septum with pink mucous membranes Mouth: Dentition unremarkable. Moist mucus membranes. Posterior oropharynx is not erythematous. No tonsillar hypertrophy. Uvula midline. Airway patent. Neck: No palpable lymphadenopathy. No nuchal rigidity. No thyromegaly. Cardiovascular: Regular rate and rhythm without murmurs, gallops, or rubs. Lungs: Clear to auscultation bilaterally. No wheezes, rhonchi, or rales. Abdomen: Soft, with tenderness on palpation over the left upper quadrant of the abdomen and midepigastric area. No other tenderness on palpation No guarding, rebound, or rigidity. Negative [place] sign. Extremities: No clubbing, cyanosis, or edema. 2+ pulses in all 4 extremities. No calf tenderness on palpation. Back: No costovertebral angle tenderness to palpation. Neurologic Exam: Grossly nonfocal. Skin Exam: No rash noted. Intact skin that is warm and dry. Data Data Last Documented VS Vital Signs Date Time Temp Pulse Resp B/P Pulse Ox O2 Delivery O2 Flow Rate FiO2 10/04/16 06:43 16 10/04/16 06:14 98.6 74 117/70 99 Room Air MDM Medical Decision Making Medical Screen Exam Complete: Yes Emergency Medical Condition: Yes Medical Record Reviewed: Yes Differential Diagnosis Gastritis, versus peptic ulcer disease, versus biliary colic, versus kidney stone, versus pancreatitis Narrative Course During the course of the patients emergency department visit, the patients history, examination, and differential diagnosis were reviewed with the patient. The patient had IV access obtained and blood work sent for analysis. The patient was placed on a spring winder with oximetry and blood pressure monitoring. The patient was initially provided normal saline IV fluids, Protonix 40 mg IV, Zofran 4 mg IV. The patients laboratory studies were pending at the conclusion of my shift. The patient's case will be checked out to the oncoming emergency physician to disposition based on the conclusion of the patient's workup. The patient's evaluation done at the [facility] will also be obtained from their medical records regarding the patient's prior laboratory studies and ultrasound findings. Diagnosis Primary Impression: Abdominal pain Qualified Code: R10.10 - Pain of upper abdomen Trina Matthews MD October 04, 2016 06:53
[2016-10-04 07:00] VITALS: O2SAT 100
--- NOTE | 2016-10-04 07:08 | PD ---
Physical Exam Date Seen by Provider: October 04, 2016 Time Seen by Provider: 07:07 Narrative The patient is a 21-year-old female was initially evaluate by the previous physician, Dr. Matthews. Please refer to the initial history, physical, diagnostic evaluation, and treatment modality plan. The patient was signed out at 7 AM with laboratory evaluation and reports from [facility] pending. Data Data Last Documented VS Vital Signs Date Time Temp Pulse Resp B/P Pulse Ox O2 Delivery O2 Flow Rate FiO2 10/04/16 07:00 100 Room Air 10/04/16 06:43 16 10/04/16 06:14 98.6 74 117/70 Orders Complete Blood Count With Diff (10/04/16 06:44) Comprehensive Metabolic Panel (10/04/16 06:44) Lipase (10/04/16 06:44) Urinalysis - C+S If Indicated (10/04/16 06:44) Iv Access Insert/Monitor (10/04/16 06:44) Ecg Monitoring (10/04/16 06:44) Oximetry (10/04/16 06:44) Ed Urine Pregnancytest Poc (10/04/16 06:44) Sodium Chlor 0.9% 1000 Ml Inj (Ns 1000 M (10/04/16 06:45) Ondansetron Inj (Zofran Inj) (10/04/16 06:45) Pantoprazole Inj (Protonix Inj) (10/04/16 06:45) Urine Culture (10/04/16 08:05) Labs Laboratory Tests Test 10/04/16 10/04/16 07:00 08:05 White Blood Count 7.0 TH/MM3 Red Blood Count 4.86 MIL/MM3 Hemoglobin 14.3 GM/DL Hematocrit 41.9 % Mean Corpuscular Volume 86.2 FL Mean Corpuscular Hemoglobin 29.5 PG Mean Corpuscular Hemoglobin 34.2 % Concent Red Cell Distribution Width 12.4 % Platelet Count 267 TH/MM3 Mean Platelet Volume 7.8 FL Neutrophils (%) (Auto) 44.5 % Lymphocytes (%) (Auto) 44.8 % Monocytes (%) (Auto) 5.1 % Eosinophils (%) (Auto) 4.8 % Basophils (%) (Auto) 0.8 % Neutrophils # (Auto) 3.1 TH/MM3 Lymphocytes # (Auto) 3.1 TH/MM3 Monocytes # (Auto) 0.4 TH/MM3 Eosinophils # (Auto) 0.3 TH/MM3 Basophils # (Auto) 0.1 TH/MM3 CBC Comment DIFF FINAL Differential Comment Sodium Level 141 MEQ/L Potassium Level 3.4 MEQ/L Chloride Level 106 MEQ/L Carbon Dioxide Level 28.3 MEQ/L Anion Gap 7 MEQ/L Blood Urea Nitrogen 8 MG/DL Creatinine 0.66 MG/DL Estimat Glomerular Filtration 114 ML/MIN Rate Random Glucose 76 MG/DL Calcium Level 9.0 MG/DL Total Bilirubin 0.4 MG/DL Aspartate Amino Transf 22 U/L (AST/SGOT) Alanine Aminotransferase 33 U/L (ALT/SGPT) Alkaline Phosphatase 81 U/L Total Protein 7.3 GM/DL Albumin 3.8 GM/DL Lipase 76 U/L Urine Color YELLOW Urine Turbidity HAZY Urine pH 6.5 Urine Specific [place] 1.020 Urine Protein TRACE mg/dL Urine Glucose (UA) NEG mg/dL Urine Ketones NEG mg/dL Urine Occult Blood NEG Urine Nitrite NEG Urine Bilirubin NEG Urine Urobilinogen LESS THAN 2.0 MG/DL Urine Leukocyte Esterase MOD Urine RBC 1 /hpf Urine WBC 12 /hpf Urine Squamous Epithelial 12 /hpf Cells Urine Bacteria OCC /hpf Urine Mucus FEW /lpf Microscopic Urinalysis Comment CULTURE INDICATED MDM Medical Record Reviewed: Yes Supervised Visit with KERI: No Interpretation(s) Laboratory Tests Test 10/04/16 10/04/16 07:00 08:05 White Blood Count 7.0 TH/MM3 Red Blood Count 4.86 MIL/MM3 Hemoglobin 14.3 GM/DL Hematocrit 41.9 % Mean Corpuscular Volume 86.2 FL Mean Corpuscular Hemoglobin 29.5 PG Mean Corpuscular Hemoglobin 34.2 % Concent Red Cell Distribution Width 12.4 % Platelet Count 267 TH/MM3 Mean Platelet Volume 7.8 FL Neutrophils (%) (Auto) 44.5 % Lymphocytes (%) (Auto) 44.8 % Monocytes (%) (Auto) 5.1 % Eosinophils (%) (Auto) 4.8 % Basophils (%) (Auto) 0.8 % Neutrophils # (Auto) 3.1 TH/MM3 Lymphocytes # (Auto) 3.1 TH/MM3 Monocytes # (Auto) 0.4 TH/MM3 Eosinophils # (Auto) 0.3 TH/MM3 Basophils # (Auto) 0.1 TH/MM3 CBC Comment DIFF FINAL Differential Comment Sodium Level 141 MEQ/L Potassium Level 3.4 MEQ/L Chloride Level 106 MEQ/L Carbon Dioxide Level 28.3 MEQ/L Anion Gap 7 MEQ/L Blood Urea Nitrogen 8 MG/DL Creatinine 0.66 MG/DL Estimat Glomerular Filtration 114 ML/MIN Rate Random Glucose 76 MG/DL Calcium Level 9.0 MG/DL Total Bilirubin 0.4 MG/DL Aspartate Amino Transf 22 U/L (AST/SGOT) Alanine Aminotransferase 33 U/L (ALT/SGPT) Alkaline Phosphatase 81 U/L Total Protein 7.3 GM/DL Albumin 3.8 GM/DL Lipase 76 U/L Urine Color YELLOW Urine Turbidity HAZY Urine pH 6.5 Urine Specific [place] 1.020 Urine Protein TRACE mg/dL Urine Glucose (UA) NEG mg/dL Urine Ketones NEG mg/dL Urine Occult Blood NEG Urine Nitrite NEG Urine Bilirubin NEG Urine Urobilinogen LESS THAN 2.0 MG/DL Urine Leukocyte Esterase MOD Urine RBC 1 /hpf Urine WBC 12 /hpf Urine Squamous Epithelial 12 /hpf Cells Urine Bacteria OCC /hpf Urine Mucus FEW /lpf Microscopic Urinalysis Comment CULTURE INDICATED Differential Diagnosis Differential diagnosis includes UTI, pyelonephritis, gastritis, peptic ulcer disease, atypical cholecystitis, pancreatitis, choledocholithiasis. Narrative Course The patient is a 21-year-old female was initially evaluated by the previous physician, Dr. Matthews. Please refer to the initial history, physical, diagnostic evaluation, and treatment modality plan. The patient was signed out at 7 AM with laboratory evaluation and reports from [facility] pending. CBC and CMP are unremarkable. UA is consistent with UTI with 12 WBCs. Records from [facility] reveal the patient had ultrasound performed August 20, 2016 which revealed gallstones, minimal tenderness was noted over the gallbladder, there are no dilated ducts and there is no pericholecystic fluid. I reevaluated the patient's abdominal exam. She has no right upper quadrant abdominal pain, minimal epigastric and left upper quadrant abdominal pain, but no guarding or rigidity. Patient's white count is normal. LFTs and lipase are normal. I do not believe the patient has biliary colic, she states that sometimes food makes her symptoms worsen sometimes food makes her symptoms better. The patient may have gastritis and/or peptic ulcer disease. She had no relief from Zantac, will be placed on Prilosec. UA reveals UTI, will be treated with Macrobid. She is advised to follow-up with gastroenterology for symptoms persist, she may need outpatient EGD and/or HIDA scan if symptoms persist. She is advised to have diet as tolerated. Diagnosis Primary Impression: Abdominal pain Qualified Code: R10.10 - Pain of upper abdomen Additional Impression: UTI (urinary tract infection) Qualified Code: N39.0 - Urinary tract infection without hematuria, site unspecified Patient Instructions: General Instructions Additional Instruction: Protonix and Macrobid as directed. Follow-up with gastroenterology. Please provide the patient a copy of her labs from today. Return if symptoms worsen or progress. Med/Other Pt SpecificInfo: Prescription(s) given Scripts Pantoprazole (Protonix)40 Mg Tab40 Mg PO DAILY #30 TAB Ref 0 Prov:Don Junior MD 10/04/16 Nitrofurantoin Monohydrate Macrocrystals (Macrobid)100 Mg Onb582 Mg PO BID 10 Days Ref 0 Prov:Don Junior MD 10/04/16 Disposition: 01 DISCHARGE HOME Condition: Stable Don Junior MD October 04, 2016 07:08
[2016-10-04 07:13] LABS: AUTOMATED NEUTROPHIL # 3.1 TH/MM3 (1.8-7.7); BASOPHIL # 0.1 TH/MM3 (0-0.2); BASOPHIL % 0.8 % (0.0-2.0); EOSINOPHIL # 0.3 TH/MM3 (0-0.4); EOSINOPHIL % 4.8 % (0.0-4.0); HEMATOCRIT 41.9 % (35.0-46.0); HEMO FLAGS DIFF FINAL; LYMPH % 44.8 % (9.0-44.0); LYMPHOCYTE # 3.1 TH/MM3 (1.0-4.8); MEAN CELL VOLUME 86.2 FL (80.0-100.0); MEAN CORPUSCULAR HEMOGLOBIN 29.5 PG (27.0-34.0); MEAN CORPUSCULAR HGB CONC 34.2 % (32.0-36.0); MONO % 5.1 % (0.0-8.0); NEUT % 44.5 % (16.0-70.0); PLATELET COUNT 267 TH/MM3 (150-450); RED BLOOD COUNT 4.86 MIL/MM3 (4.00-5.30); RED CELL DISTRIBUTION WIDTH 12.4 % (11.6-17.2)
[2016-10-04 07:30] LABS: ALT (GPT) 33 U/L (9-42); ANION GAP 7 MEQ/L (5-15); AST (GOT) 22 U/L (16-38); BICARBONATE 28.3 MEQ/L (21.0-32.0); BLOOD UREA NITROGEN 8 MG/DL (7-18); CHLORIDE 106 MEQ/L (98-107); GLOMERULAR FILTRATION RATE 114 ML/MIN (>89); POTASSIUM 3.4 MEQ/L (3.5-5.1); SODIUM (NA) 141 MEQ/L (136-145)
[2016-10-04 07:32] LABS: ALKALINE PHOSPHATASE 81 U/L (45-117); TOTAL BILIRUBIN ADULT 0.4 MG/DL (0.2-1.0)
[2016-10-04 08:35] LABS: BACTERIA, URINE OCC /hpf; BLOOD, URINE NEG (NEG); COMMENT (UR) CULTURE INDICATED; CULTURE IF INDICATED CULTURE INDICATED; GLUCOSE,URINE NEG (NEG); KETONE, URINE NEG (NEG); MUCUS URINE FEW /lpf (OCC); NITRITE,URINE NEG (NEG); PH, URINE 6.5 (5.0-8.5); SQUAMOUS EPITHELIAL CELL URINE 12 /hpf (0-5); URINE COLOR YELLOW (YELLW/STRAW)
[2016-10-04] MEDS ORDERED: MACR100C2 PO (09:33)
[2016-10-04] MEDS ORDERED: PROT40TA PO (09:33)
[2016-10-04 09:44] VITALS: BP 126/78
== END 2016-10-04 10:09 | disposition home or self-care (01) ==
LOC: NEPE 06:13
DX: R10.12 Left upper quadrant pain (principal); N39.0 Urinary tract infection, site not specified; B96.89 Other specified bacterial agents as the cause of diseases classified elsewhere
CPT/HCPCS: 80053; 81001; 83690; 84703; 85025; 87086; 96361; 96374; 96375; 99283; C9113; J2405; J7030